=== PATIENT | male | born 1955 | race Caucasian/White ===

== ENCOUNTER 2023-01-16 06:55 | Day surgery (SDC) | payer BC, MEDICARE, SELFPAY ==
--- NOTE | 2023-01-15 18:24 | W.ANESPRE ---
General Info Date of Service Date Performed: 01/16/23 Height: 5 ft 10 in Weight: 79.9 kg Body Mass Index (BMI): 25.2 Surgical Procedure: Operation Date: 01/16/23 08:20 Proposed Procedure Side Surgeon p Colonoscopy Иван Love MD Meds Allergies and Home Medications Allergies Allergy/AdvReac Type Severity Reaction Status Date / Time No Known Drug Allergies Allergy Verified 01/16/23 07:13 Home Medication Medication Instructions Recorded [id number] 300 mcg-K 60 1 tab PO DAILY 06/21/22 mcg-lycop 600 mcg-lutein 300 mcg tablet (Centrum Silver Men) Current Visit Medications: Current Medications Generic Name Dose Route Start Last Admin Trade Name Freq PRN Reason Stop Dose Admin Ringer's Solution 1,000 mls @ 80 mls/hr 01/16/23 06:00 IV 02/12/23 23:59 INFUSION TRISTAN IV Miscellaneous Supplies 1 each 01/16/23 06:00 Iv Access IV 02/12/23 23:59 DIRECTED TRISTAN Sodium Chloride 0 ml 01/16/23 06:00 Normal Saline Flush 10 Ml Syr IV 02/12/23 23:59 PRN PRN Sodium Chloride 0 ml 01/16/23 06:00 Normal Saline 10 Ml Vial IJ 02/12/23 23:59 DIRECTED PRN Sterile Water 0 ml 01/16/23 06:00 Water,Injection,Sterile 10 Ml Vial IJ 02/12/23 23:59 DIRECTED PRN PFSH Active Problems Active Problems: Problem Status Onset Code Gastritis K29.70 Screening for colon cancer Z12.11 Medical History Medical History Former smoker GERD (gastroesophageal reflux disease) Hyperlipidemia Surgical History Surgical History Colonoscopy - IV Sedation (01/27/17) Tobacco Smoking/Tobacco Use Status: Former Tobacco Use Alcohol Alcohol Intake: current Alcohol intake frequency: a few times a month Alcohol type: beer Substance Use Substance use: Never Substance use type: does not use Vital Signs and Lab Results Lab Results Blood Type / Crossmatch: No Data to Display Complete Blood Count: No Data to Display Complete Metabolic Panel: No Data to Display Liver Function Panel: No Data to Display Coagulation Panel: No Data to Display Cardiac Panel: No Data to Display Arterial Blood Gas: No Data to Display Venous Blood Gas: No Data to Display Pancreas Panel: No Data to Display Thyroid Panel: No Data to Display Infectious Disease: No Data to Display Blood Cultures: No Data to Display Toxicology Panel: No Data to Display Anesthesia Assessment and Plan Anesthesia History Personal History: No History of Anesthesia Complications Family History: No Family History of Anesthesia Complications Exercise Tolerance Exercise Tolerance: Metabolic Equivalents>4 Cardiac & Pulmonary Exam Cardiac Exam: Normal S1/S2 Heart Sounds Pulmonary Exam: Clear Bilateral Breath Sounds Implantable Cardiac Device Does patient have a Pacemaker or an ICD?: No Airway Exam Known Difficult Airway: No Mallampati Class: 1 Mouth Opening: Normal (> 3cm) Thyromental Distance: Less than 3 cm Neck Range of Motion: Full ROM Neck Circumference: Normal Teeth Condition: Normal Dentition ASA Classification ASA Score: ASA 2 Emergency Case?: No NPO Status NPO Status: NPO Clears >2 hours, Solids >8 hours Anesthesia Plan Resuscitation Status: Full Code Anesthesia Technique: General Anesthesia Airway Planned: Natural Airway Monitors Used: Standard Monitors Preoperative Comments:: 67 yo male for colo. Sig PMHx: GERD, former smoker, occ EtOH, denies major.
--- NOTE | 2023-01-15 20:48 | PDOC.DSDIS_ITS ---
Date of service: 01/16/23 Time of Service: 08:23 Discharge Plan Disposition Condition: Good Condition: Good Discharge Details Reason For Visit: Screening colonoscopy Attending Provider: Иван Love Primary Care Provider: Sabina Capellan Home Meds and New Rx's Prescriptions: Continued Centrum Silver Men 300-600-300 mcg tablet 1 tab PO DAILY Discontinued bisacodyl [Dulcolax (bisacodyl)] 5 mg tablet,delayed release (DR/EC) 5 mg PO ONCE Qty: 4 0RF Rx Instructions: Take per colonoscopy instructions provided by ordering providers office polyethylene glycol 3350 17 gram/dose powder 17 g PO ONCE Qty: 238 0RF Rx Instructions: Take per colonoscopy instructions provided by ordering providers office Discharge Instructions Additional Instructions: Mikael, we were able to do your colonoscopy today without any problems. The quality of your prep was excellent. I did not see anything abnormal at all. Typically, screening colonoscopies are performed every 10 years. In a patient who is known to have a first-degree family relative (mother, father, sister, brother, child) and screenings should be conducted on 5-year intervals rather than 10. You have now had 2 normal colonoscopies. I will leave it up to you with regards to your next screening interval. If the colonoscopies are well- tolerated, and covered by your health insurer, then 5-year interval is reason able, since your family history is unclear. With 2 negative colonoscopies, it would also be reasonable to move towards a 7 or 10-year interval if that is more convenient. 1. If tolerated, consume a soft, low fiber diet for 1-2 days. 2. Do not drive, drink alcohol, operate machinery, make critical decisions, or do activities that require coordination or balance for 24 hours. 3. Because air was put into your colon during the procedure, expelling air from your rectum (passing gas or farting) is normal. 4. You may not have a bowel movement for 1-3 days because of the colonoscopy prep. This is normal. 5. Go directly to the emergency room if you notice any of the following: Develop chills (warm to touch), or if you have a thermometer and your temperature is above 101 Difficulty breathing or difficultly swallowing Persistent vomiting Severe abdominal pain, other than gas cramps Severe chest pain Black, tarry stools Any bleeding ? exceeding one tablespoon 6. Call your physician if the site where your intravenous was started becomes red, swollen, painful, and warm to touch. 7. Your physician has reviewed your pre-procedure medications. Please continue to take those medications as previously ordered. You will be given specific information/education regarding any changes to your medications before leaving. Activity:: Activity as Tolerated Diet:: As Tolerated DS: Diagnosis Discharge Diagnosis (1) Screening for colon cancer: Status: Acute Asessment and Plan: Negative screening colonoscopy
--- NOTE | 2023-01-15 20:49 | W.COLOREPORT ---
Date of service: 01/16/23 Time of Service: 08:25 Colonoscopy Report Date of procedure: 01/16/23 Pre-op diagnosis general: Screening colonoscopy Post-op diagnosis procedure note: same Procedure: Colonoscopy Surgeon: Иван Love Anesthesia Type: General:No Airway Estimated blood loss (mL): 0 Pathology: none sent Complications: None Disposition: same day Indications: Mikael is a 67 year old male who is following up for his net screening colonoscopy Prep: Miralax/Dulcolax Procedure Start Time: 08:05 Procedure End Time: 08:17 Retraction Time: 7 Findings: Negative screening colonoscopy Procedure Description: After the induction of monitored anesthetic care, and with the patient in left lateral decubitus position, I began by performing an external anorectal exam.? Perineum and skin were normal, as was the anal verge.? There was no evidence of external hemorrhoids.? Next, I performed a digital rectal exam.? I did not appreciate any abnormal findings.? Next, I advanced a colonoscope into the rectal vault.? I performed retroflexion.? This was normal.? Using insufflation, I then advanced the colonoscope beyond the rectal folds and into the sigmoid colon before advancing towards the cecum.? The quality of the prep was excellent.? The scope was noted to be in the cecum by identification of the ileocecal valve and appendiceal orifice.? I then began withdrawing the colonoscope using repeated irrigation as necessary for full evaluation of the colonic mucosa. ?Once the scope was withdrawn to the level of the rectum, great care was taken to examine portions of the rectal folds.? I did not see any signs of tumors, polyps, or any other abnormalities. Finally, the scope was withdrawn and the patient was brought to the same-day surgery recovery unit as the anesthetic wore off. ?The findings and instructions were shared with the patient prior to discharge.
[2023-01-16 07:07] VITALS: BP 127/83; PULSE 67; RESP 17; TEMP 36.6; O2SAT 97
[2023-01-16] MEDS: Lactated Ringers 1,000 ML 80 ML IV (07:20)
[2023-01-16 07:43] VITALS: BMI 25.2
[2023-01-16 08:24] VITALS: BP 106/79; PULSE 72; RESP 18; TEMP 36.3; O2SAT 95
--- NOTE | 2023-01-16 08:27 | W.ANESPOSTOP ---
Postoperative Evaluation Date, Time and Location Date Performed: 01/16/23 Time Performed: 08:27 Patient Location: Day Surgery Unit Vital Signs Most Recent Imported Vital Signs: Most Recent Vital Signs Temp Pulse Resp BP Pulse Ox 36.3 C L 72 18 106/79 95 01/16/23 08:24 01/16/23 08:24 01/16/23 08:24 01/16/23 08:24 01/16/23 08:24 Pain Score Most Recent Pain Score: Most Recent Pain Score Pain Level 0 01/16/23 08:24 Assessment Mental Status: Arousable with meaningful communication Airway and Respiratory Function: Patent airway with normal (patient baseline) respiratory exam Cardiovascular Function: Hemodynamically Stable Hydration Status: Adequately Hydrated Nausea & Vomiting: No Nausea or Vomiting Pain: Pt. Denies Any Pain Peripheral Nerve Block: Patient did not receive a nerve block
[2023-01-16 08:42] VITALS: BP 118/79; PULSE 61; RESP 18; TEMP 36.4; O2SAT 96
== END 2023-01-16 08:55 | disposition home or self-care (01) ==
PROVIDERS: PCP Nurse Practitioner; Visit Provider Surgery
PROC: 0DJD8ZZ Inspection of Lower Intestinal Tract, Via Natural or Artificial Opening Endoscopic (ICD-10-PCS; CPT 45378; principal; 2023-01-16 08:15)
DX: Z12.11 Encounter for screening for malignant neoplasm of colon (principal)
CPT/HCPCS: G0121